=== PATIENT | male | born 1980 | race Asian ===

== ENCOUNTER 2017-03-05 08:24 | Emergency (ER) | payer OTHER, MEDICARE ==
[~2017-03-05] VITALS: Ht 180.3 cm; Wt 108.0 kg
[~2017-03-05 08:24] MED LIST: BMP; DEPAKOTE500 M1 PO; DIVALPROEX SOD500 M1 PO; INVEGA SUSTENN117 MG IM; INVEGA SUSTENN234 MG IM; LORAZEPAM0.5 MG PO; SEROQUEL 100MG100 MG PO; SEROQUEL XR400 MG PO
--- NOTE | 2017-03-05 10:09 | ED GENERAL ADULT ---
History of Present Illness General Chief Complaint: General Adult Stated Complaint: BIBA, INSOMNIA Source: patient, old records Exam Limitations: no limitations Vital Signs & Intake/Output Vital Signs & Intake/Output Vital Signs Date Time Temp Pulse Resp B/P B/P Pulse O2 O2 Flow FiO2 Mean Ox Delivery Rate 03/05 1217 98.0 70 20 120/74 98 Room Air 03/05 1107 98.0 68 18 118/72 98 Room Air 03/05 0831 97.0 66 18 108/69 97 Room Air Allergies Coded Allergies: Pork/Porcine Containing Products (AGAINST RESTORATIONIST 07/13/16) benztropine (From COGENTIN) (RASH 07/13/16) haloperidol (From HALDOL) (TONGUE SWELLS 07/13/16) Reconcile Medications Divalproex Sodium (Depakote) 500 MG TABLET.DR 2 TAB PO BID MENTAL HEALTH ( Reported) Lorazepam 0.5 MG TABLET 0.5 MG PO QPM ANXIETY (Reported) Paliperidone Palmitate (Invega Sustenna) 234 MG SER 1 SYR IM Q30D MENTAL HEALTH (Reported) Triage Note: PT BIBA FROM HOME FOR C/O INSOMNIA. STATES HIS NURSE HASN'T BEEN OUT TO GIVE HIM HIS DEPAKOTE IN 2 DAYS. STATES HE COULDN'T SLEEP LAST NIGHT. DENIES ANY PAIN. PT HAS H/O BIPOLAR. JAZZ SI/HI. JAZZ AV/AH. AWAITING PROVIDER EVAL. Triage Nurses Notes Reviewed? yes HPI: Patient is a 36-year-old male presents complaining of insomnia and stress. Patient reports that he has been unable to sleep for the past 2-3 days. Patient has not had his Depakote or Ativan in at least 2 days. Patient has a visiting nursing services that normally administers his medications but reports that he missed opening his door one time and they stopped sending the visiting nurse. Patient with racing thoughts and depression. Symptoms are currently severe. Patient denies suicidal ideation, homicidal ideation, suicide attempts, illicit drug use. Past History Travel History Traveled to [place] past 21 day No Medical History Any Pertinent Medical History? 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 No Review of Systems Review of Systems Constitutional: Denies: chills, fever. EENTM: Reports: no symptoms. Respiratory: Denies: cough, short of breath. Cardiovascular: Denies: chest pain. GI: Reports: abdominal pain (last night, none currently). Genitourinary: Reports: no symptoms. Musculoskeletal: Reports: no symptoms. Skin: Reports: no symptoms. Neurological/Psychological: Reports: see HPI. Hematologic/Endocrine: Reports: no symptoms. Immunologic/Allergic: Reports: no symptoms. Physical Exam Physical Exam General Appearance: well developed/nourished, alert, awake Head: atraumatic, normal appearance Eyes: Bilateral: normal appearance, PERRL, EOMI. Ears, Nose, Throat: normal pharynx, normal ENT inspection, hearing grossly normal Neck: normal inspection, supple, full range of motion Respiratory: normal breath sounds, chest non-tender, no respiratory distress, lungs clear Cardiovascular: regular rate/rhythm Gastrointestinal: normal bowel sounds, soft, non-tender Back: normal inspection, normal range of motion Extremities: normal inspection, normal capillary refill, normal range of motion, no edema Neurologic/Psych: awake, alert, oriented x 3, flat affect, no apparent suicidal ideation or hallucinations Skin: intact, normal color, warm/dry Lymphatic: no anterior cervical brooklynn Core Measures ACS in differential dx? No CVA/TIA Diagnosis: No Severe Sepsis Present: No Septic Shock Present: No Progress Differential Diagnoses I considered the following diagnoses in my evaluation of the patient: Anxiety, depression, bipolar, psychosis, medication withdrawal, overdose, intoxication Plan of Care: Orders Procedure Date/time Status Regular Diet 03/05 L Active URINE DRUG SCREEN FOR ER ONLY 03/05 1016 Complete ETHANOL 03/05 1016 Complete DEPAKOTE LEVEL 03/05 1016 Complete COMPREHENSIVE METABOLIC PANEL 03/05 1016 Complete CBC WITHOUT DIFFERENTIAL 03/05 1016 Complete ED CRISIS PSYCH CONSULT 03/05 1016 Active Laboratory Tests 03/05/17 1103: Urine Opiates Screen < 100.00, Methadone Screen < 40, Barbiturate Screen < 60, Ur Phencyclidine Scrn < 6.00, Amphetamines Screen < 100, U Benzodiazepines Scrn < 85, Urine Cocaine Screen < 50, Urine Cannabis Screen < 5.00 03/05/17 1058: Anion Gap 13, Estimated GFR > 60, BUN/Creatinine Ratio 14.3, Glucose 82, Calcium 9.8, Total Bilirubin 0.6, AST 38, ALT 57, Alkaline Phosphatase 64, Total Protein 7.8, Albumin 4.4, Globulin 3.4, Albumin/Globulin Ratio 1.3, CBC w Diff NO MAN DIFF REQ, RBC 4.79, MCV 91.1, MCH 31.0, RDW 14.1, MPV 6.3 L, Gran % 42.8, Lymphocytes % 44.8, Monocytes % 9.6 H, Eosinophils % 2.4, Basophils % 0.4, Absolute Granulocytes 4.1, Absolute Lymphocytes 4.3 H, Absolute Monocytes 0.9 H, Absolute Eosinophils 0.2, Absolute Basophils 0, PUBS MCHC 34.0, Valproic Acid < 10.0 L, Serum Alcohol < 10.0 03/05/2017 12:07:54 PM; patient requesting discharge, does not want to be evaluated by the psychology clinician. No suicidal or homicidal ideation. Patient reports that he can call his visiting nursing services for them to resume administering his medications. (KELECHI KELLEY,JULIET) Initial ED EKG: none Departure Departure Time of Disposition: 1208 Disposition: HOME OR SELF CARE Condition: Stable Clinical Impression Primary Impression: Insomnia Secondary Impressions: Bipolar disorder Referrals: UNKNOWN (PCP/Family) Additional Instructions: Call your visiting nursing services today for them to resume administering current medications. Return to the emergency department if thoughts of harming yourself or worsening of symptoms. Departure Forms: Customer Survey General Discharge Information Critical Care Note Critical Care Note Critical Care Time: non-applicable
[2017-03-05 11:09] LABS: ABSOLUTE BASOPHIL COUNT 0 /CUMM (0.0-0.2); ABSOLUTE EOSINOPHIL COUNT 0.2 /CUMM (0.0-0.7); ABSOLUTE GRANULOCYTE CT 4.1 /CUMM (1.4-6.5); ABSOLUTE LYMPH COUNT 4.3 /CUMM (1.2-3.4); ABSOLUTE MONOCYTE COUNT 0.9 /CUMM (0.10-0.60); BASOPHIL % 0.4 % (0.0-2.0); EOSINOPHIL % 2.4 % (0-5); GRANULOCYTE % 42.8 % (42.2-75.2); HEMATOCRIT 43.7 % (42-52); MEAN CORPUSCULAR VOLUME 91.1 FL (80.0-94.0); MEAN PLATELET VOLUME 6.3 FL (7.4-10.4); PLATELET COUNT 276 /CUMM (130-400); RBC DISTRIBUTION WIDTH 14.1 % (11.5-14.5); RED BLOOD CELL CT 4.79 /CUMM (4.70-6.10); WHITE BLOOD CELL COUNT 9.5 /CUMM (4.8-10.8)
[2017-03-05 12:17] VITALS: BP 120/74
== END 2017-03-05 12:20 ==
LOC: ERH 08:24
PROVIDERS: Physician Assistant
DX: G47.00 Insomnia, unspecified (principal); F31.9 Bipolar disorder, unspecified
CPT/HCPCS: 80307; G0480

== ENCOUNTER 2017-03-25 09:48 | Inpatient (IN) | payer OTHER, MEDICARE ==
[~2017-03-25] VITALS: Ht 180.3 cm; Wt 108.0 kg
--- NOTE | 2017-03-25 09:51 | NUR ---
36 YO MALE BIBA FROM HOME. PT STATES HE HAS A HX OF BIPOLAR AND SCHIPHRENIA AND HE STOPPED HIS MEDS A COUPLE DAYS AGO. STATES "I FIGURED I WOULD BE BETTER OFF NOT TAKING MY MEDS, THEY DONT WORK ANYWAYS" PT ARRIVES CALM AND COOPERATIVE. SECUIRTY AT BEDSIDE FOR WANDING. DENEIS ALCOHOL/DRUG USE. DENIES SI/HI.
--- NOTE | 2017-03-25 09:58 | NUR ---
URINE ORDERED PER REQUEST OF RN AND PROVIDER
--- NOTE | 2017-03-25 10:10 | NUR ---
One (1) belongings bag locked in closet and one (1) valuables bag given to Pod 2 RN
[2017-03-25 10:11] LABS: ABSOLUTE BASOPHIL COUNT 0 /CUMM (0.0-0.2); ABSOLUTE EOSINOPHIL COUNT 0.2 /CUMM (0.0-0.7); ABSOLUTE GRANULOCYTE CT 3.6 /CUMM (1.4-6.5); ABSOLUTE LYMPH COUNT 4.3 /CUMM (1.2-3.4); ABSOLUTE MONOCYTE COUNT 0.8 /CUMM (0.10-0.60); BASOPHIL % 0.3 % (0.0-2.0); GRANULOCYTE % 40.4 % (42.2-75.2); HEMATOCRIT 40.8 % (42-52); MEAN CORPUSCULAR HGB 30.8 PG (27.0-31.0); MEAN CORPUSCULAR HGB CONC 34.1 G/DL (33.0-37.0); MEAN CORPUSCULAR VOLUME 90.4 FL (80.0-94.0); PLATELET COUNT 254 /CUMM (130-400); RBC DISTRIBUTION WIDTH 13.9 % (11.5-14.5); RED BLOOD CELL CT 4.51 /CUMM (4.70-6.10)
--- NOTE | 2017-03-25 10:20 | ED PSYCHIATRIC COMPLAINT ---
History of Present Illness General Chief Complaint: Psychiatric Related Complaint Stated Complaint: HX BIPOLAR, HASNT BEEN TAKING MEDS Source: patient, old records, EMS Exam Limitations: no limitations Vital Signs & Intake/Output Vital Signs & Intake/Output Vital Signs Date Time Temp Pulse Resp B/P B/P Pulse O2 O2 Flow FiO2 Mean Ox Delivery Rate 03/30 808 96.2 57 110/56 03/29 2027 97.3 81 118/70 03/29 1552 77 120/67 03/29 1210 47 117/61 Allergies Coded Allergies: Pork/Porcine Containing Products (AGAINST YAZDANISM 07/13/16) benztropine (From COGENTIN) (RASH 07/13/16) haloperidol (From HALDOL) (TONGUE SWELLS 07/13/16) Reconcile Medications Divalproex Sodium (Depakote) 500 MG TABLET.DR 2 TAB PO BID MENTAL HEALTH ( Reported) Lorazepam 0.5 MG TABLET 0.5 MG PO QPM ANXIETY (Reported) Paliperidone Palmitate (Invega Sustenna) 234 MG SER 1 SYR IM Q30D MENTAL HEALTH (Reported) Triage Note: 36 YO MALE BIBA FROM HOME. PT STATES HE HAS A HX OF BIPOLAR AND SCHIPHRENIA AND HE STOPPED HIS MEDS A COUPLE DAYS AGO. STATES "I FIGURED I WOULD BE BETTER OFF NOT TAKING MY MEDS, THEY DONT WORK ANYWAYS" PT ARRIVES CALM AND COOPERATIVE. SECUIRTY AT BEDSIDE FOR WANDING. DENEIS ALCOHOL/DRUG USE. DENIES SI/HI. Triage Nurses Notes Reviewed? yes Onset: 2 days Duration: day(s):, constant, continues in ED, getting worse Timing: recent history Severity: moderate, severe Associated Symptoms: impaired concentration, insomnia, suicidal ideation HPI: 2 days prior to admission patient stopped his medication because he felt he was overly sedated. He complains of insomnia inability to concentrate and auditory hallucination hearing voices tell him to kill himself coming from the devil. He denies fever chills nausea vomiting diarrhea abdominal pain chest pain shortness breath headache dysuria rash bleeding homicidal ideation. (DONNIE MAYFIELD,DESMOND) Past History Travel History Traveled to [place] past 21 day No Medical History Any Pertinent Medical History? 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 No (DESMOND FIELDS MD) Review of Systems Review of Systems Constitutional: Reports: no symptoms. EENTM: Reports: no symptoms. Respiratory: Reports: no symptoms. Cardiovascular: Reports: no symptoms. GI: Reports: no symptoms. Genitourinary: Reports: no symptoms. Musculoskeletal: Reports: no symptoms. Skin: Reports: no symptoms. Neurological/Psychological: Reports: see HPI, anxiety, confusion. Hematologic/Endocrine: Reports: no symptoms. Immunologic/Allergic: Reports: no symptoms. All Other Systems: Reviewed and Negative (DESMOND FIELDS MD) Physical Exam Physical Exam General Appearance: well developed/nourished, alert, awake, anxious, mild distress Head: atraumatic, normal appearance Eyes: Bilateral: normal appearance, PERRL, EOMI. Ears, Nose, Throat: normal pharynx, normal ENT inspection, hearing grossly normal Neck: normal inspection, supple, full range of motion, no midline tenderness Respiratory: normal breath sounds, chest non-tender, no respiratory distress, quiet respiration, lungs clear Cardiovascular: regular rate/rhythm, normal peripheral pulses, norml femoral pulses equa Gastrointestinal: normal bowel sounds, soft, non-tender, no organomegaly Extremities: normal range of motion, no ligament instability Neurological/Psychiatric: no motor/sensory deficits, awake, agitated, alert, anxious, accounting officer II-XII nml as tested, flat, oriented x 3 Appearance/Memory/Insight: disheveled, impaired insight Behavoir/Eye Contact/Speech: cooperative, normal speech Thoughts/Hallucinations: auditory hallucinations Skin: intact, normal color, warm/dry SAD PERSONS SAD PERSONS Response Value Male Sex? yes 1 Depression/Hopelessness? yes 2 Previous Attempts/Psych Care yes 1 Rational Thinking Loss? yes 2 Single//? yes 1 Social Support? has support 0 Stated Future Intent? yes 2 Total 9 SAD PERSONS Done? yes (DESMOND FIELDS MD) Progress Differential Diagnosis: drug intoxication, drug overdose, drug withdrawal, electrolyte abnormality, hypoglycemia Plan of Care: Current Medications Sig/José Antonio Start time Last Medication Dose Stop Time Status Admin Paliperidone 234 MG Q28D 03/31 1000 AC Palmitate (Invega Sustenna) Divalproex Sodium 1,000 MG 0800,03/27 AC 03/29 (Depakote) 203 Paliperidone 3 MG Q6P PRN 03/27 1930 AC 03/29 (Invega) 233 Gabapentin 300 MG Q4P PRN 03/27 181 AC 03/29 (Neurontin) 233 Melatonin 10 MG AT BEDTIME NEED.. 03/27 1815 AC 03/29 (Melatonin) 203 Acetaminophen 650 MG Q6P PRN 03/26 1230 AC 03/29 (Tylenol) 1330 Al Hydroxide/Mg 30 ML Q4-6 PRN PRN 03/26 1230 AC Hydroxide (Maalox Plus) Magnesium Hydroxide 30 ML AT BEDTIME PRN 03/26 1230 AC (Milk Of Magnesia) Laboratory Tests 03/30/17 0730: Hemoglobin A1c Pending, Valproic Acid Pending 3:13 PM 03/25 Patient signed out to me by Dr. Fields. Pending crisis inpatient bed. (XI CALI MD) Hand-Off Endorsed To: XI CALI MD Endorsed Time: 1500 Pending: consult, other (bed search) (DESMOND FIELDS MD) Hand-Off Endorsed To: EN DAVENPORT MD Endorsed Time: 0700 Pending: consult, other (BILL MAYFIELD,ARELIS Powell) Comments: 03/26/2017 7:30:59 AM patient signed out to me by Dr. Tucker at shift chart changer. The patient's nurse has just brought to my attention that the patient's heart rate is in the upper 40s to low 50s. An EKG and TSH have been ordered. 03/26/2017 10:44:42 AM additional evaluation is unremarkable. Patient's case discussed with Dr. Ariel Olivares including his current heart rate blood pressure EKG. Dr. Olivares does not feel that there is any acute cardiac issue currently. (EN DAVENPORT MD) Departure Departure Disposition: STILL A PATIENT Condition: Stable Referrals: UNKNOWN (PCP/Family) Departure Forms: Customer Survey General Discharge Information (DESMOND FIELDS MD) Departure Time of Disposition: 1212 (XI CALI MD) Departure Clinical Impression Primary Impression: Schizoaffective disorder, bipolar type Secondary Impressions: Bradycardia Psych Admission Note Psychiatric Admission: I have reviewed all the pertinent lab results and diagnostic results. YOUSEF,AMER will be admitted to our inpatient Psychiatric unit for treatment and care. (EN DAVENPORT MD) Departure Departure Disposition: STILL A PATIENT Condition: Stable Referrals: UNKNOWN (PCP/Family) Departure Forms: Customer Survey General Discharge Information (DESMOND FIELDS MD) Departure Clinical Impression Primary Impression: Schizoaffective disorder, bipolar type Secondary Impressions: Bradycardia Psych Admission Note Psychiatric Admission: I have reviewed all the pertinent lab results and diagnostic results. YOUSEF,AMER will be admitted to our inpatient Psychiatric unit for treatment and care. (EN DAVENPORT MD)
--- NOTE | 2017-03-25 11:03 | NUR ---
ASSUMED CARE OF THIS PT FROM SONYA BRAVO. PT RESTING IN ROOM 13, CALM AND COOPERATIVE WITH TV ON. AWAITING CRISIS CONSULT. SITTER AT DOOR.
--- NOTE | 2017-03-25 13:01 | NUR ---
PT AMBULATORY TO RESTROOM AND TO TELEPHONE. PT CALM AND COOPERATIVE. PT HAD STEADY GAIT. SITTER AT DOOR.
--- NOTE | 2017-03-25 14:30 | NUR ---
PT ASLEEP ON BACK ON BED IN ROOM 13. PT HAS BEEN CALM AND COOPERATIVE. PT IS AWAITING CRISIS CONSULT. SITTER AT DOOR. PT'S RESPIRATIONS EQUAL AND UNLABORED.
--- NOTE | 2017-03-25 15:33 | NUR ---
RECEIVED REPORT ON PT AND PT NOTED RESTING AND NO COMPLAINTS AND AWARE POC
--- NOTE | 2017-03-25 17:02 | NUR ---
WAS JUST INFORMED THAT PT WILL BE A BED SEARCH
--- NOTE | 2017-03-25 17:40 | ED PSYCH CRISIS CONSULTATION ---
See Addendum Crisis Consult Basic Assessment Date of Consult: 03/25/17 Responsible Person/Accompanied By: self/biba Insurance Authorization: Insurance #1: Insurance name: MEDICARE A Phone number: Policy number: [id number] Group number: Authorization number: ED Provider: Patient's ED Provider: DESMOND FIELDS MD Primary Care Physician: Patient's PCP: UNKNOWN PCP's Phone Number: Current Psychiatrist: Dr Villa [facility] Chief Complaint: Psychiatric Related Complaint Patient's Quote: I'm hearing voicessaying to do bad and negative things. Present Illness: Pt is a 36 yo male biba to [place] earlier this morning. Pt reports he stopped taking his medication two days ago and now is hearing voices telling him to harm himself. he also reports racing thoughts and inability to sleep. Pt has prior hx of multiple hospitalizations on [facility] (last inpatient Dec 2015) and has long hx of outpatient treatment at [facility] in [place]. Pt is diagnosed schizoaffective bipolar type and is prescribed depakote and ativan. He has a long hx of medication non-compliance. Most prior inpatient admissions are precipitated by his stopping to take his medications. Pt reports he stopped taking his medications because he didn't think they helped. Pt presents as alert , cooperative, depressed, poor concentration, OX3. he reports voices are telling him to harm self but he is trying to ignore them. Pt reports living with his mother and older brother. he receives in-home visiting nurse services. Patient's Address: [address] [place] [address] Other Phone Number: Who Do You Live With? Mother Family/Informants Interviewed: informed pr mother Angela that pt was receiving psychiatric consult at [place] [facility] and he would require a bed search for inpatient treatment. Allergies - Coded Allergies: Pork/Porcine Containing Products (AGAINST MU-ISM 07/13/16) benztropine (From COGENTIN) (RASH 07/13/16) haloperidol (From HALDOL) (TONGUE SWELLS 07/13/16) Current Medications - Scheduled Medications Divalproex Sodium (Depakote) 500 MG TABLET.DR Baxter TAB PO BID MENTAL HEALTH ( Reported) Entered as Reported by JANEL PEDROZA on 07/13/16 1745 Lorazepam 0.5 MG TABLET 0.5 MG PO QPM ANXIETY #30 (Reported) Entered as Reported by JENIFFER DELGADILLO on 10/20/14 0959 Paliperidone Palmitate (Invega Sustenna) 234 MG SER 1 SYR IM Q30D MENTAL HEALTH #2 (Reported) Entered as Reported by JENIFFER DELGADILLO on 12/12/15 1137 Laboratory Results: Laboratory Tests 03/25/17 1007: Anion Gap 14, Estimated GFR > 60, BUN/Creatinine Ratio 11.7, Glucose 105 H, Calcium 9.4, Total Bilirubin 0.5, AST 21, ALT 26, Alkaline Phosphatase 56, Total Protein 6.9, Albumin 3.9, Globulin 3.0, Albumin/Globulin Ratio 1.3, CBC w Diff MAN DIFF ORDERED, RBC 4.51 L, MCV 90.4, MCH 30.8, RDW 13.9, MPV 6.0 L, Gran % 40.4 L, Lymphocytes % 48.0, Monocytes % 9.3, Eosinophils % 2.0, Basophils % 0.3 , Absolute Granulocytes 3.6, Absolute Lymphocytes 4.3 H, Absolute Monocytes 0.8 H, Absolute Eosinophils 0.2, Absolute Basophils 0, Platelet Estimate VERIFIED BY SMEAR, Normocytic RBCs VERIFIED, Normochromic RBCs VERIFIED, PUBS MCHC 34.1, Valproic Acid 104.7, Serum Alcohol < 10.0 03/25/17 1002: Urine Opiates Screen < 100.00, Methadone Screen < 40, Barbiturate Screen < 60, Ur Phencyclidine Scrn < 6.00, Amphetamines Screen 105, U Benzodiazepines Scrn < 85, Urine Cocaine Screen < 50, Urine Cannabis Screen < 5.00 Past History Past Medical History Neurological: NONE EENT: NONE Cardiovascular: NONE Respiratory: NONE Gastrointestinal: NONE Hepatic: NONE Renal: NONE Musculoskeletal: NONE Psychiatric: anxiety, bipolar disease, schizo affective disorder Endocrine: NONE Blood Disorders: NONE Cancer(s): NONE 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 Past Surgical History Surgical History: none Psychosocial History Strengths/Capabilities: Supportive family Engaged in outpatient tx Able to ask for help when needed Physical Limitations (Interventions): None identified Psychiatric Treatment History Psych Treatment Psychiatric Treatment Yes Inpatient Treatment Yes Outpatient Treatment Yes Location of Treatment [facility] since 2010; most recent Dec 2015; outpatient telephony engineer [facility] Reason for Treatment schizoaffective d/o Response to Treatment chronic med non-compliance Diagnosis by History: Schizoaffective d/o Substance Use/Abuse History Drug Use/Abuse Substances Used/Abused No Substance Abuse Treatment Substance Abuse Treatment Past Substance Abuse [place] No Comments: denies alcohol and drug use Current Mental Status Mental Status Orientation: Person, Place, Situation Affect: Depressed, Hopeless, Sad Speech: WNL Neuro-vegetative: Concentration Poor, Energy Decreased, Helpless, Sleep Disturbance Appearance Appearance- Dress/Hygiene: hospital scrubs, laying flat on bed with blanker pulled up to neck. engageable. Behaviors Thought Process: Irrational, Loose Association Thought Content: Auditory Hallucinations Memory: WNL Insight: Fair SI/HI Risk Assessment Past Suicidal Ideation/Attempts Yes Current Suicidal Ideation/Att Yes Past Homicidal Ideation/Att: No Current Homicidal Ideation/Attempts No Degree of Intent: Thoughts/No Intent Danger To: Self Gravely Disabled: Poor Impulse Control, Poor Judgment Risk Factors: high anxiety/distress, SA/MH hospitalized, poor impulse control, male Lethality Ratin PTSD Checklist PTSD Done? patient declined ED Management Sitter: Yes Restraints: No DSM5/PS Stressors/Medical Prob Diagnosis' (DSM 5, Stressors, Medical): Schizoaffective D/O (F25.0) recent medication stoppage unemployed Current GAF: 25 Comments: pt reports stopping his medications two days ago because he thought they weren't helping. Pt reporting inability to sleep, racing thoughts and AH with voices telling him to harm himself. Departure Disposition Psych Medical Clearance Date: 03/25/17 Medically Cleared at: 1700 Time Started: 1704 Time Ended: 1744 Psychiatrist Consulted: Daniela MAYFIELD,Edward Date Disposition Established: 03/25/17 Time Disposition Established: 1744 Plan for Disposition - Modality: Bed Search Rationale for Disposition: Pt requires bed search for inpatient psychiatric treatment. Pt stopped medications 2 days ago and hearing voices to harm self. Referrals UNKNOWN (PCP/Family)
--- NOTE | 2017-03-25 19:12 | NUR ---
PT STILL SLEEPING AND EASILY AROUSED AND DENIES ANY COMPLAINTS AT PRESENT
--- NOTE | 2017-03-25 21:13 | NUR ---
PT STILL SLEEPING AND STS HE WILL LIKE TO BE LEFT ALONE FOR THE REST OF THE NIGHT
--- NOTE | 2017-03-25 22:32 | NUR ---
PT MEDICATED ORDERED
--- NOTE | 2017-03-26 00:08 | NUR ---
PT MEDICATED WITH 10MG MELATONIN PER EMAR FOR SLEEP
--- NOTE | 2017-03-26 00:08 | NUR ---
PT AWOKEN FOR MEDICATION ADMINISTRATION. OFFERING NO COMPLAINTS AT THIS TIME, SITTER REMAINS IN PLACE FOR SAFETY.
--- NOTE | 2017-03-26 02:26 | NUR ---
PT UP TO BATHROOM, BACK TO BED. OFFERING NO COMPLAINTS AT THIS TIME. SITTER REMAINS IN PLACE
--- NOTE | 2017-03-26 04:01 | NUR ---
PATIENT SLEEPING AT THIS TIME W/ REGULAR RESPIRATIONS NOTED. SITTER REMAINS AT BEDSIDE. LIGHTS DIMMED.
--- NOTE | 2017-03-26 05:25 | NUR ---
PATIENT CONTINUES TO SLEEP AT THIS TIME W/ REGULAR RESPIRATIONS NOTED. SITTER REMAINS W/ PATIENT. PATIENT NOTED TO BE TURNING AND REPOSITIONING SELF W/O DIFFICULTY.
--- NOTE | 2017-03-26 06:48 | NUR ---
PT AWAKE, CALM AND COOPERATIVE. DENIES NEEDS. SITTER REMAINS PRESENT
--- NOTE | 2017-03-26 06:48 | NUR ---
PT REPORTS "I FEEL BETTER TODAY." DENIES HALLUCINATIONS AT THIS TIME
--- NOTE | 2017-03-26 06:58 | NUR ---
ASSUMED CARE AT THIS TIME, PT AWAKE FOR THIS NURSE, CALM COPERATIVE AND OFFERS NO COMPLAINTS.
--- NOTE | 2017-03-26 07:29 | NUR ---
PT AWAKE FR VITALS, OFFERS NO COMPLAINTS, HR NOTED TO RANGE FROM 42/54, DR DAVENPORT AWARE AND EKG TO BE ORDERED. DENIES DIZZINESS.
--- NOTE | 2017-03-26 07:53 | NUR ---
DR DAVENPORT AWARE OF LOW HR, EKG COMPLETED AND PT SINUS FRANCISCA WITH HR 41. PT CONTINUES TO DENIE DIZZINESS. PT MOVED TO MEDICAL ROOM PLACED ON MONITOR
--- NOTE | 2017-03-26 08:17 | NUR ---
PT DENIES BEING AN ATHLETE. ABLE TO CHANGE POSITIONS WITHOUT FEELING DIZZY, DENIES CP/SOB. SINUS FRANCISCA AT THIS TIME WITH HR 44.
--- NOTE | 2017-03-26 08:42 | NUR ---
BLOOD DRAWN AND SENT TO LAB. LAV,SST,BLUE
--- NOTE | 2017-03-26 08:54 | NUR ---
PT AWAKE AND ALERT, DENIES DIZZINESS, SINUS FRANCISCA HR 48
--- NOTE | 2017-03-26 09:22 | NUR ---
PT CONTINUES TO OFFER NO COMPLAINTS, SINUS FRANCISCA MONITOR HR [id number]
--- NOTE | 2017-03-26 10:27 | NUR ---
PHARMACY CALLED FOR MEDS
--- NOTE | 2017-03-26 10:44 | NUR ---
PT MEDICATED PER ORDER , REMAINS CALM AND COPERATIVE , SINUS FRANCISCA ON MONITOR HR 51. PER DR DAVENPORT PT TO HAVE EVALUATION BY CARDIOLOGY
--- NOTE | 2017-03-26 12:15 | NUR ---
AWAITING CARDIOLOGY CONSULT.
--- NOTE | 2017-03-26 13:21 | IP CRISIS DIAG ASSESS PSYCH ---
Diagnostic Assessment Basic Assessment Insurance Authorization: Insurance #1: Insurance name: MEDICARE A BEHAVIORAL HEALTH Phone number: Policy number: [id number] Group number: Authorization number: [id number] INITIAL Primary Care Physician: Patient's PCP: UNKNOWN PCP's Phone Number: Patient's Quote: I'm hearing voicessaying to do bad andnegative things. Present Illness: Pt is a 36 yo male biba to [facility] ED earlier this morning. Pt reports he stopped taking his medication two days ago and now is hearing voices telling him to harm himself. he also reports racing thoughts and inability to sleep. Pt has prior hx of multiple hospitalizations on [facility] (last inpatient Dec 2015) and has long hx of outpatient treatment at [facility] in [place]. Pt is diagnosed schizoaffective bipolar type and is prescribed depakote and ativan. He has a long hx of medication non-compliance. Most prior inpatient admissions are precipitated by his stopping to take his medications. Pt reports he stopped taking his medications because he didn't think they helped. Pt presents as alert , cooperative, depressed, poor concentration, OX3. he reports voices are telling him to harm self but he is trying to ignore them. Pt reports living with his mother and older brother. he receives in-home visiting nurse services. >>>>> Eddie JAIMESW Pt re-evaluated by crisis. He reports AH that tell him to harm himself. He said the voices get very loud when he is by himself but not when having a conversation with others. He denies AH during this securities underwriter's conversation. He is seeking admission for mood stablization and safety. Pt said he stopped taking his medications 2 days ago. He presents with poor insight, judgement and eye contact. Pt observed to be gravely disabled and not stable at this time. This securities underwriter consulted with Dr. Franco and recommends to proceed with inpatient admission. Patient's Address: [address] [place] [address] Other Phone Number: Who Do You Live With? Mother Feel Safe Where You Live? Yes Marital Status: single Do You Have Children? No Primary Language? Saudi Arabian Language(s) Spoken At Home: Saudi Arabian, Greek Family/Informants Interviewed: informed pr mother Angela that pt was receiving psychiatric consult at [facility] and he would require a bed search for inpatient treatment. Allergies - Coded Allergies: Pork/Porcine Containing Products (AGAINST CAODAISM 07/13/16) benztropine (From COGENTIN) (RASH 07/13/16) haloperidol (From HALDOL) (TONGUE SWELLS 07/13/16) Current Medications - Scheduled Medications Divalproex Sodium (Depakote) 500 MG TABLET.DR 2 TAB PO BID MENTAL HEALTH ( Reported) Entered as Reported by JANEL PEDROZA on 07/13/16 1745 Lorazepam 0.5 MG TABLET 0.5 MG PO QPM ANXIETY #30 (Reported) Entered as Reported by JENIFFER DELGADILLO on 10/20/14 0959 Paliperidone Palmitate (Invega Sustenna) 234 MG SER 1 SYR IM Q30D MENTAL HEALTH #2 (Reported) Entered as Reported by JENIFFER DELGADILLO on 12/12/15 1137 Past History Past Medical History Medical History: Cholesterol, SCHIZOAFFECTIVE DISORDER, ELEVATED CHOLESTEROL, ANEMIA, NICOTINE DEPENDENCE Past Surgical History Surgical History none Abuse/Trauma History Trauma History/Current Trauma: denies Victim or Perpretator? 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 [facility] Reason for Treatment schizoaffective d/o Response to Treatment chronic med non-compliance Diagnosis by History: Schizoaffective d/o Risk Factors: high anxiety/distress, SA/MH hospitalized, poor impulse control, male Substance Use/Abuse History Drug Use/Abuse minimum 12mo Hx Substances Used/Abused No Substance Abuse Treatment Substance Abuse Treatment Past Substance Abuse [place] No Sexual History Sexually Active No Sexual Concerns: denies Education History Highest Level of Education: some college Preferred Learning Style: visual Current Mental Status Mental Status Orientation: Person, Place, Situation Affect: Depressed, Hopeless, Sad Speech: WNL Neuro-vegetative: Concentration Poor, Energy Decreased, Helpless, Sleep Disturbance Appearance Appearance- Dress/Hygiene: hospital scrubs, laying flat on bed with blanker pulled up to neck. engageable. Behaviors Thought Process: Irrational, Loose Association Thought Content: Auditory Hallucinations Memory: WNL Insight: Fair SI/HI Risk Assessment - Minimum 6mo History- Past Suicidal Ideation/Attempts Yes Current Suicidal Ideation/Att Yes Past Homicidal Ideation/Att: No Current Homicidal Ideation/Attempts No Degree of Intent: Thoughts/No Intent Danger To: Self Gravely Disabled: Poor Impulse Control, Poor Judgment Risk Factors: high anxiety/distress, SA/MH hospitalized, poor impulse control, male Lethality Ratin Needs/Init TX Plan/Goals: mood stabilization and safety, medication evaluation, psychoeducation, group and individual therapy, and coping skills. AUDIT-C Questionnaire: AUDIT-C Questionnaire: Response Value ETOH use in the past year Never 0 # drinks typical/day Doesn't Drink 0 6 or > drinks per occasion Never 0 Total 0 DSM5/PS Stressors/Medical Prob Diagnosis' (DSM 5, Stressors, Medical): Schizoaffective D/O (F25.0) recent medication stoppage unemployed Current GAF: 25 Comments: Pt reports stopping his medications two days ago because he thought they weren't helping. Pt reporting inability to sleep, racing thoughts and AH with voices telling him to harm himself.
--- NOTE | 2017-03-26 13:54 | NUR ---
PT TO BE ADMITTED TO [facility]. PT CLEARED BY CARDIOLOGY. SINUS FRANCISCA HR 48 AT THIS TIME.OFFERS NO COMPLAINTS
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
--- NOTE | 2017-03-26 16:05 | NUR ---
PATIENT ALERT6 ORIENTED , NAD DENIES PAIN OR WEAKNESS EATING AND DRINKING W/O ISSUE HR 46 SINUS BRADYCARDIA / B/P 98/44 SKIN WARM DRY
--- NOTE | 2017-03-26 17:56 | NUR ---
RESTING QUIETLY CALM COOPERATIVE OFFERS NO COMPLAINTS SKIN COOL DRY
--- NOTE | 2017-03-26 18:53 | NUR ---
REPORT GIVEN TO GALILEO MEJIA
[2017-03-26 19:58] VITALS: BP 117/70
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
--- NOTE | 2017-03-27 07:37 | NUR ---
PT VOLUNTARILY ADMITTED FOR SCHIZOAFFECTIVE DISORDER WITH PARANOID THOUGHTS. PT HAS BEEN NON-COMPLIANT WITH MEDS. PT HAD ATIVAN 0.5 PRN AND VISTARIL 50 PRN WITH GOOD EFFECT. PT SLEPT.
--- NOTE | 2017-03-27 12:11 | SOCIAL WORKER PROG NOTE PSYCH ---
Social Work Progress Note Progress Note Discussed Dhaval in team meeting with Dr. Suarez and staff. Met with Dhaval this afternoon, he stated he knows he shouldn't have stopped his medications. When asked if there was any stressors prior to admission, Dhaval stated his sister, Lanette and his Mother are going to [place] to visit family for a month and are leaving in a few days. Dhaval stated he was going to go with them, but he said he doesn't think he can go now (due to being in the hospital). He understands they need to go to [place] (they wanted to take [place] as well), because they haven;t seen family in 25yrs. Dhaval stated it's going to be "difficult being by myself." He lives with his brother, Amanda and Mother. He stated the voices POSTAL DELIVERY OFFICER were telling him to kill himself, "they were saying very, very bad things....like I should kill myself, I tried to ignore them, but I couldn't take it anymore, I had to come here." Offered to Dhaval to use [employer] to communicate with his Mother ( who seems to be primary caregiver for Dhaval). He refused a release for his Mother or Mini. He stated Mini "doesn't do well in meetings." Dhaval signed PAYAL's for [facility] and [facility] as well as Lanette Yousef (sister). He denied SI/HI - denied command hallucinations today, he did appear to be highly anxious and restless when talking about his sister and Mother's trip to [place]. He is calm, cooperative, soft spoken. Has been in groups, quiet and keeps to himself. Dhaval stated he "wants to go to college." Spoke with Lanette Yousef , she feels Dhaval hasn't done well on his medications for the past few years. - she said he is always paranoid, doesn't want to do anything, never leaves the house apparently. His sister, Lanette lives in [place]. She did confirm that she and her Mother are going to [place], the tickets haven;t been confirmed yet, she stated they may go next week or the following week. Lanette seemed irritated and annoyed with Dhaval and how he "doesn' t do anything, won't go out of the house, dependent on my Mother." She stated Dhaval will have to "grow up" and be without his Mother for a month. Informed Lanette about Dhaval's presentation and Command - to kill himself, she stated she didn't know that and her tone softened. She stated she wants to come to [place] for a meeting and see Dhaval, next week. Plan to talk on Thursday to schedule meeting. Spoke with Casey Berman, RN of [facility] , he confirmed that they do provide injection of Invega - last dose given was on 03/03 of 234mg every 4 weeks. Dhaval is alos connected with [facility] - ACT Team and social media marketing specialist, Adeline Jin, [facility]. His prescriber is Dr. Davis. Mr. Berman will inform Dr. Davis and Ms. Jin of admission to . Phoned [facility] , they confirmed that invega is given by [facility], and Dhaval's nurse is Nan. Plan to call the Nursing supervisor post wave, Kristie on Thursday - .
[2017-03-27 12:37] VITALS: BP 98/50
--- NOTE | 2017-03-27 13:14 | History & Physical ---
General Information and HPI History of Present Illness: This young male with previous history of psychiatric illness is admitted again to [facility] because of not feeling well. The patient reports that his mental state was not too good and he was feeling too depressed and suicidal and therefore called the ambulance and came to the hospital. He did not try any suicidal attempt. He claims that he is taking his medication regularly and he was getting injection every month in [place] for psychiatric medication. He denies any physical problems or any ongoing medical illnesses. He claims that he had some injuries in past and broke some bones as a child but does not have any primary physician and does not go to any medical doctor in the area. He claims he sees a psychiatrist in [place] on a regular basis. He is not employed at this time and claims that he is staying home with his mother and another brother who is in good health. He claims his father in his 50s from some lung cancer because he was a smoker. Patient was born in [place] but came to [place] about 25 years ago when he was only 11 that is old. His admits to smoking about half a pack of cigarettes a day but denies doing any other drugs or drinking Allergies/Medications Allergies: Coded Allergies: Pork/Porcine Containing Products (AGAINST TENRIISM 07/13/16) benztropine (From COGENTIN) (RASH 07/13/16) haloperidol (From HALDOL) (TONGUE SWELLS 07/13/16) Home Med list Divalproex Sodium (Depakote) 500 MG TABLET.DR 2 TAB PO BID MENTAL HEALTH ( Reported) Lorazepam 0.5 MG TABLET 0.5 MG PO QPM ANXIETY (Reported) Paliperidone Palmitate (Invega Sustenna) 234 MG SER 1 SYR IM Q30D MENTAL HEALTH (Reported) Past History Travel History Traveled to [place] past 21 day No Medical History Neurological: NONE EENT: NONE Cardiovascular: NONE Respiratory: NONE Gastrointestinal: NONE Hepatic: NONE Renal: NONE Musculoskeletal: NONE Psychiatric: anxiety, schizo affective disorder Endocrine: NONE Blood Disorders: NONE Cancer(s): NONE DIPPER FISH/Reproductive: NONE History of MRSA: No History of VRE: No History of CDIFF: No Isolation History: Standard Surgical History Surgical History: N Past Family/Social History Family History Relations & Conditions if any Relation not specified for: *No pertinent family history Psychosocial History Where do you live? Home Services at Home: None Primary Language: Chinese ETOH Use: denies use Illicit Drug Use: denies illicit drug use Functional Ability ADLs Independent: dressing, eating, toileting, bathing. Ambulation: independent IADLs Independent: shopping, housework, finances, food prep, telephone, transportation , medication admin. Review of Systems Review of Systems Constitutional: Reports: see HPI, malaise. EENTM: Denies: no symptoms. Cardiovascular: Denies: no symptoms. Respiratory: Denies: no symptoms. GI: Denies: no symptoms. Genitourinary: Denies: no symptoms. Musculoskeletal: Reports: see HPI. Skin: Denies: no symptoms. Neurological/Psychological: Reports: see HPI, anxiety, confusion, depressed, emotional problems, headache. Hematologic/Endocrine: Denies: no symptoms. Immunologic/Allergic: Denies: no symptoms. All Other Systems: Reviewed and Negative Exam & Diagnostic Data Last 24 Hrs of Vital Signs/I&O Vital Signs Date Time Temp Pulse Resp B/P B/P Pulse O2 O2 Flow FiO2 Mean Ox Delivery Rate 03/27 1237 47 98/50 03/26 1958 96.5 68 117/70 03/26 1803 97.8 58 20 120/62 97 Room Air 03/26 1623 57 110/60 03/26 1545 98.0 46 18 98/44 97 Room Air 03/26 1450 40 18 96/54 98 Room Air Intake & Output 03/27 1600 03/27 0800 03/27 0000 Intake Total Output Total Balance Patient 238 lb Weight Physical Exam General Appearance Alert, Oriented X3, Cooperative, No Acute Distress Skin No Rashes, No Breakdown, No Significant Lesion HEENT Atraumatic, PERRLA, EOMI, Mucous Membr. moist/pink Neck Supple, No JVD, No thryomegaly, +2 Carotid Pulse wo Bruit Lymphatic Cervical nl Cardiovascular Regular Rate, Normal S1, Normal S2, No Murmurs, Gallops, Rubs Lungs Clear to Auscultation, Normal Air Movement Abdomen Normal Bowel Sounds, Soft, No Tenderness, No Hepatospenomegaly, No Masses Neurological Exam Findings: Normal Gait, Normal Speech, Strength at 5/5 X4 Ext, Normal Tone, Cranial Nerves 3-12 NL Cranial Nerves II through XII: Within normal limits and grossly intact Extremities No Clubbing, No Cyanosis, No Edema, No Tenderness/Swelling Assessment/Plan Assessment: This young male was admitted to psychiatry again for increased depression and schizoaffective disorder. He reports that he has been taking his medication and denies any new medical illness. Is fairly stable from medical standpoint without any acute problems. His lab work including a CBC is reasonably normal and acceptable. His electrolytes are normal but embolism is slightly elevated probably due to her medication. There are no signs and symptoms of pancreatitis and abdominal exam is completely benign and therefore does not require any further workup or treatment As Ranked By This Provider Problem List: 1. Schizoaffective disorder 2. Anxiety 3. Depression 4. Psychosis 5. Bradycardia Miscellaneous Miscellaneous Documentation Attending Case Discussed With: MARIANA MAYFIELD,ELVIN Wayne Primary Care Physician: UNKNOWN Patient sees these Specialists none Level of Patient Care: GALILEO Garrison Attending MD Review Statement Attending Statement Attending MD Statement: examined this patient, reviewed EMR data (avail), discussed with nursing Attending Assessment/Plan: This young male is admitted for increasing depression and schizoaffective disorder and psychosis is stable from medical standpoint without any acute medical problems except for minor headaches and back pains etc. that only required a when necessary treatment. His minimal elevation of amylase is insignificant and does not require any treatment or workup is probably due to medication since his exam is completely benign. He will be seen as needed.
--- NOTE | 2017-03-27 13:34 | NUR ---
PT ISOLATED IN HIS ROOM MOST OF THE MORNING.HE WAS OOB FOR VS AND MEALS AND MEDS. HE DID NOT ATTEND GROUP. HIS AFFECT IS FLAT AND HIS MOOD APPEARS DEPRESSED. HE DENIED THOUGHTS OF SUICIDE OR SELF HARM
--- NOTE | 2017-03-27 15:41 | SOCIAL WORKER TX PLAN PSYCH ---
Treatment Plan - Please Document: - Evidence that there is ongoing collaboration between - the patient and the interdisciplinary team, - including the patient's active participation and - responsibility for engaging in the treatment regimen, - and that the treatment plan is individualized and - relevant to the patient's conditions. - Treatment plan should reflect documentation indicating - that all active therapeutic efforts are included. Strengths/Capabilities: Supportive family Engaged in outpatient tx Able to ask for help when needed Physical Limitations (Interventions): None identified Patient Identified Trmt Goals: "I want to stop the voices." Discharge Plan: Referral to [facility] - Dr. Davis, Act Team CECILIA Toure Visiting nurse Problem/Goals #1 Problem #1: psychosis Goal (Short Term): Eliminate command AH, be safe on unit, 15min checks. Inform staff if hearing voices. Talk to staff about thoughts and feelings. Identify triggers - family leaving for [place] (Mother and sister). Goal (Privacy Director): Maintain stable mood, verbalize no psychosis, no command AH/VH. Remain compliant with medications. engage in treatment and aftercare. Interventions: Provide support, education on symptoms and symptom management. Modalities: CBT, DBT, IA modalities, accupuncture, activity groups, SA/MH groups. DSM5/PS Stressors/Medical Prob Diagnosis' (DSM 5, Stressors, Medical): Schizoaffective D/O (F25.0) recent medication stoppage unemployed Current GAF: 25 Treatment Team - Responsibilities of members of the treatment team include: - Medication Management- MD or VP HOME HEALTH - Medication Administration and Monitoring- Nurse - Group Therapy- Occupational Therapist - 1:1 Therapy,Disch Planning,family involvement-Herbicide Service Sales Representative
[2017-03-27 15:53] VITALS: BP 118/60
--- NOTE | 2017-03-27 18:48 | CPS MD/APRN INITIAL ASSE PSYCH ---
Psychiatric Admission Airport Utility Worker's Note Reviewed: Yes Patient Seen and Examined: Yes Identifying Information: This is the 7th [facility] admission since 06/2011 but the first since 12/2015 for a 36-year-old single (never ), childless man continuing to live with his mothe in [facility], and unemployed/on disability for an extensive period. Chief Complaint: "I'm hearing voices saying to do bad and negative things...they are saying very, very bad things... like I should kill myself. I tried to ignore them, but I couldn't take it anymore; I had to come here [he feels 'safe']." Reaction to Hospitalization: actively seeking admission to hospital History of Present Illness Onset of Illness: Patient said he stopped taking his medications "two days" ago but started hearing disturbing voices and came into the E.D. for help. Patient claims he discontinued medications because he "did not think they were working" but things have clearly deteriorated since. Circumstances Leading to Admission: --self-reported discontinuation of medications followed by very rapid decompensation Problem(s) Justifying Need for Admission: --command type auditory hallucinations instructing patient to do harm to self (? and others) Other HPI: All information available at this time indicates that patient's "decompensation " is a recent phenomenon though his sister said he "hasn't done well on his medications for the past few years...he is always paranoid, doesn't want to do anything, never leaves the house, is too dependent on [his] mother...he will have to 'grow up' and be without his mother for a month." Past Psychiatric History Past Diagnosis(es)- if any: upon most recent [facility] discharge, 12/19/2015: Schizoaffective Disorder, Depressed, with Psychotic features (command auditory hallucinations) ANTWON (per Dr. Yang) hx of mild elevation in amylase hx of elevated lipids Past Precipitating Factors- if any: --family relations problems, mostly with older brother Mini but also sister Mnadi --being rejected for jobs (or the stress of getting one) --noncompliance with medications (e.g. resistance to taking depot injectables) - Include inpatient and outpatient treatment Treatment History: Patient has been a longtime outpatient at [facility] and previously admitted to [facility] 6 times since 2010. He has mostly led an isolated life but apparently makes most of his clinic appointments and comes into hospital voluntarily, usually on his own initiative. There had been a longtime attempt by treaters at [facility] to stabilize him on Clozapine but (at least during [facility] admissions) he always rejected this due to not wanting the initial weekly bloodwork. Patient had been started on Invega Sustenna sometime in the second half of 2013 but by the time of admission to [facility] in 10/2014 was no longer willing to take it any longer; it was not listed on discharge medications from [facility] in 08/2015 but was in 12/2015, his most recent discharge from here. History of Suicide Attempts or Gestures denied history of suicide attempts Substance Abuse History: denied; acknowledges only smoking tobacco from a hooka once a day Allergies: Coded Allergies: Pork/Porcine Containing Products (AGAINST BUDDHIST 07/13/16) benztropine (From COGENTIN) (RASH 07/13/16) haloperidol (From HALDOL) (TONGUE SWELLS 07/13/16) Home Med List: Depakote ER, 1,000mg 2x/day Invega Sustenna, 234mg I.M. Q4W Ativan, 0.5mg HS - Include any medical condition(s) that may - impact the patient's recovery/remission Past History Medical History Neurological: NONE EENT: NONE Cardiovascular: hyperlipidemia Respiratory: NONE Gastrointestinal: NONE Hepatic: NONE Renal: NONE Musculoskeletal: NONE Psychiatric: schizo affective disorder (hx command aud. hallucinations), schizophrenia (R/O Schizophrenia (paranoid)) Endocrine: NONE Blood Disorders: NONE Cancer(s): NONE CUSTOMER SERVICE SECURITY OFFICER/Reproductive: NONE History of MRSA: No History of VRE: No History of CDIFF: No Isolation History: Standard Surgical History Surgical History: none Psychiatric Family/Social Hx Family History Psychiatric Illness: denied Substance Use: denied Suicides: denied Other Family History: heritage of [place] and [place] Social History Living Situation: (see above, under "Identifying Information") Significant Relationships (family/friends): --only significant contacts appear to be with mother with whom he has resided for many years, perhaps essentially all his life; his older brother Mini and sister Mandi (latter lives in [place]) --has seen treaters at [facility] for many years Education: some college (and said to have taken courses in "criminal justice") Vocation/Occupation: essentially unemployed/disabled for many years Legal: denied Other Social History: has told me in the past that what he wants in life are "a job, my own apartment and a girlfriend" but to my knowledge he has not been successful in the past at any of these and appears to have not even tried very often; he has described his life as "watching movies, listening to music and going out to eat" Healthly Behaviors Screening Tobacco Screening Tobacco Use from ED Docu: Current Daily Use (from a hooka once a day) Daily Tobacco Use Amount/Type: =< 4 Cigarettes daily, => 5 Cigarettes daily - If tobacco counseling indicated - the following topics are required. - #1 Recognizing dangerous situations. - #2 Coping Skills. - #3 Basic information about quitting. Status of Tobacco Cessation Counseling: #1, #2 AND #3 Completed Cessation Med Status: Pt Refused Cessation Meds Alcohol Screening - ETOH screen POS if BAL >=80 or Audit-C>= M4/F3 Audit-C Score from Diag Assess: 0 Blood Alcohol Level: JEFFERY = less than 10.0 Alcohol Use Screening Results: Neg per Audit C &/or BAL - If ETOH counseling indicated - the following topics are required. - #1 Express concern about the patient's - drinking at unhealthy levels, include informing - of national norms for moderate drinking: - men <= 14 drinks/week, max 4 drinks/occasion - women <= 7 drinks/week, max 3 drinks/occasion - #2 Providing feedback, including linking alcohol to - negative physical effects (liver injury, hypertension) - negative emotional effects (relationship problems and - depression) - negative occupational consequences (reduced work - performance) - #3 Advising the patient to abstain from alcohol or - to drink below national norms for moderate drinking - (as listed above). Status of ETOH Use Counseling: N/A B/C NO ETOH Use Metabolic Screening - Screen if on a Neuroleptic Medication - Metabolic screening should include: - Blood Pressure, BMI, Glucose or Hgb A1c, & a - Lipid profile from within the past 365 days. Metabolic Screening () Not Applicable, patient not on a neuroleptic. OR ([x]) Patient on a neuroleptic(s) . Enter below results for Glucose or Hemoglobin A1C, and lipid panel if obtained during the last 365 days. BMI: Blood Pressure: 122/61 Laboratory Results (If applicable): [x] glucose = 87 (all drawn on 03/13/2017) cholesterol = 206 triglycerides = 238 HDL = 46 LDL = 113 Exam and Plan Mental Status Examination Ambulation Status: without assistance Appearance: rather stiff, uncomfortable/awkward appearing large overweight man Attitude towards examiner: mildly positive (recalls me favorably from previous [facility] admissions) Psychomotor activity: reduced but not retarded, little spontaneous movement, sitting rather stiffly in chair Behavior: pleasant, polite, appropriate generally though, again not very spontaneous Quality of speech: soft, slow, deliberate Affect: constricted (did smile once and that smile briefly lit up the way he looked) Mood: serious but not sullen, claimed euthymia though looked somewhat sad Suicidal Ideation: denied Homicidal Ideation: denied Hallucinations: denied Paranoid/Delusional Material: no overt expression of clear paranoid ideation; not evidence of diana or fixed delusions (though not very spontaneous and forthcoming with information) Difficulties with thought organization: none obvious but somewhat a paucity of expressed thought Insight: limited; poor (e.g. no understanding or even association in his mind that current presentation might have something to do with, relate somehow to the imminent planned month long family trip to [place] Judgment: superficially sound but limited Orientation: full (knows where he is and very relieved to be here at this time) Cognition: grossly intact, without noted focal deficits, even Memory Function: somewhat limited, vague but perhaps more out of guardedness, mild paranoia than actual deficit Estimate of intellectual functioning: average Assets/Strengths Patient Identified Assets/Strengths: --has caring and supportive family --proud of his rayna and Portuguese background --wants to work if he "can find a job" --wants to be independent, self-supporting, in his own place/apartment Impression/Plan Impression and Plan: I am familiar with this patient and to some extent his family (particularly brother and sister) from previous [facility] admissions. Though patient said he had "stopped all [his] medications two days ago" and suffered recurrence of command auditory hallucinations only since then telling him to "do bad things, harm myself," in actuality he is on Invega Sustenna depot injections and next dose of this medication is not due until 03/31/2017; on the other hand, he is in his last week of previous treatment and the Invega concentration in his system may possibly have been falling to some extent. His valproic acid level in the E.D. GROMMET WORKER was over 100! Since patient is currently on the highest recommended dose of Invega Sustenna, I have written a PRN order for oral Invega; patient knows to utilize the PRN if auditory hallucinations recur over the coming weekend. The procimal stressor leading up to current presentation must certainly be his mother and sister's imminent planned trip to visit relatives in [facility]; he is expected to go with them; one of the first things he said to me is that "my mother and sister are going to [place] but now that I am in the hospital I will not be able to go [expressed without the slightest sense of disappointment on his part]." He was already planning that possibly his older brother would come to mother's home to be with him while the latter is away. His reluctance to accompany his mother and sister may not be a an motivation not completely consciously perceived by patient at this time (that he is both anxious/phobic of making the trip but also of being without his mother for a full month). - Include all active medical diagnosis that require tx DSM 5 Diagnosis(es): Schizoaffective Disorder; MRE Mixed with prominent psychotic features (epecially command auditory hallucinations) R/O Schizophrenia with paranoid features (exacerbation of above disorder likely related to family trip to [place] which is imminent and about which he is likely highly ambivalent, conciously or unconsciously so) - Initial Tx Plan for Active Psych & Medical Conditions Treatment Plan: --plan to given next depot injection of Invega Sustenna, 234mg, as due on 2016 --for the present will supplement with doses of oral Invega as patient on maximum recommended depot --will continue current dose of Depakote ER and check valproic acid level after several days --will have a family meeting early next week (currently sister is planning to come from [facility] [facility] to meet with us but patient has refused to allow either his mother or brother to join the family meeting) --will consider offering patient intensive aftercare in either our own IOP or one with his ongoing longtime outpatient treaters at [facility] in [place], [place] (his catchment area as he lives in [place]) - Factors that would help patient function - in a less restrictive setting. Factors: --improvement on addition/utilization of oral Invega (onto maximum dose of depot Invega Sustenna) --prompt family meeting attended by closest relatives (with plan for someone "looking in on patient regularly if he does not go with mother and sister on planned trip to [place]
[2017-03-27 19:53] VITALS: BP 122/61
--- NOTE | 2017-03-27 20:56 | NUR ---
PT IS CALM, COOPERATIVE WITH STAFF AND PEERS, AND COMPLIANT [facility] UNIT RULES. PT IS OFTEN IN [place], THOUGH STAYING IN THE PERIPHERY WITH LIMITED INTERACTION IWHT OTHERS. PT WILL INTERACT WHEN DIRECTLY ENGAGED. MOOD IS STABLE, AFFECT APPEARS EUTHYMIC, COMMUNICATION IS ORGANIZED AND APPEARS NORMAL IN ALL RESPECTS, AND APPETITE IS NORMAL. PT DENIES SI AT THIS TIME.
--- NOTE | 2017-03-28 04:18 | NUR ---
SLEPT ON AND OFF.
--- NOTE | 2017-03-28 14:08 | NUR ---
PT HAS BEEN ISOLATIVE IN ROOM FOR THE WHOLE SHIFT REFUSING TO REPOND TO STAFF PROMPTING. PT DID NOT GET UP FOR VITALS THIS MORNING AND DID NOT EAT BREAKFAST. PT GOT UP AROUND 1300, TOOK HIS MEDS AND ATE LUNCH. PT IS NOT ATTENDING GROUPS. PT MOOD IS STABLE WITH A CONSTRICTED AFFECT. PT DENIES SI THOUGHTS AT THIS TIME.
[2017-03-28 16:06] VITALS: BP 127/73
--- NOTE | 2017-03-28 16:14 | CP SOUTH PROGRESS NOTE PSYCH ---
Psych (Inpt) Progress Note Progress Note Include the following elements, when applicable: Involvement in the active treatment of the patient with behavioral observations of the patient and the patient's response to the treatment. Review of the ongoing treatment process in the context of the treatment plan. Indication of how multi-disciplinary staff members are carrying out the treatment plan. Plans for future interventions and recommendations for revision of the treatment plan. Liaison with other physicians/providers. Progress Note: The patient was seen for follow-up for schizoaffective disorder, and exacerbation as a result of patient's noncompliance with medication. We discussed the progress and involvement of the patient in the unit activities with the nursing staff. We individually interviewed the patient. As per nursing staff he is appropriate in his interactions with peers and staff members. He is compliant with medication. He keeps mostly to himself and has limited interactions with peers. He does participate in groups. The patient is a tall, dark skinned male with well articulated, goal-directed, accepted speech. His thought processes linear, we did not detect any delusional ideation or abnormal thinking. The patient states: "now I understand that I cannot do without medication. I that I was able to be okay and not take the medication. I was proven wrong. Now I know I have to take my medication." The patient reports that the medication helps with "voices" and the fact "they are better now" The patient sleeps and eats well, vital signs are within normal limits, he does not have any physical complaints We will continue observation, medication management, and discharge planning ( most likely IOP)
[2017-03-28 20:09] VITALS: BP 121/66
--- NOTE | 2017-03-28 21:12 | NUR ---
PT IS VISIBLE ON UNIT, COLORING IN KITCHEN WITH PEERS BUT NOT INTERACTING MUCH WITH THEM. COOPERATIVE AND COMPLIANT WITH STAFF. NO COMPLAINTS OR SI REPORTED. PT HAS A STABLE MOOD AND CONSTRICTED AFFECT.
[2017-03-29 12:10] VITALS: BP 117/61
--- NOTE | 2017-03-29 13:09 | NUR ---
PT IS COMPLIANT AND COOPERATIVE WITH UNIT RULES. PT IS VISABLE IN THE COMMUNITY BUT DOES NOT INTERACT MUCH WITH PEERS. PT IS NOT ATTENDING GROUPS. PT REFUSED 0800 VITALS AND DID NOT GET OUT OF BED UNTIL 1200. PT MOOD IS STABLE WITH A CONSTRICTED AFFECT. PT DENIES SI THOUGHTS.
--- NOTE | 2017-03-29 13:43 | CP SOUTH PROGRESS NOTE PSYCH ---
Psych (Inpt) Progress Note Progress Note Include the following elements, when applicable: Involvement in the active treatment of the patient with behavioral observations of the patient and the patient's response to the treatment. Review of the ongoing treatment process in the context of the treatment plan. Indication of how multi-disciplinary staff members are carrying out the treatment plan. Plans for future interventions and recommendations for revision of the treatment plan. Liaison with other physicians/providers. Progress Note: The patient was seen for follow-up doing continuum of care. We interviewed the patient individually and discussed him with the nursing staff. According to the nursing staff he has been having interrupted sleep. He did take melatonin at bedtime which might have helped some. He was reportedly keeping to himself and interacting appropriately with peers and the staff members. He is eating well and his vital signs have been within normal limits. Upon our individual meeting, the patient complains of difficulty falling asleep inducing fatigue the day after. Is requesting Ativan stating that "this is the only thing that helps me sleep soundly. I have been on it for years." The patient stated that he is unable to take trazodone because of an allergic reaction, stated that he had been on Remeron and it was not helpful he basically eliminated all other possibilities with the exception of Ativan. We explained to the patient about the addicting nature of tea lorazepam. We explained about the development of tolerance to this medication. The patient continues to insist that it was the only medication which worked for him. Besides sleep complaints he continued to complain about depression and anxiety but to a lesser extent than previously. He continues to have auditory hallucinations but his thought processes are better (as per patient and our objective observation). The patient was advised to bring up his concern about sleep to the treatment team tomorrow. We encouraged him to take melatonin and not wait until she is unable to fall asleep but take it in the past. Patient agreed to do so. The patient is improving slowly but needs continuous inpatient care being that he is still hearing voices and his still anxious and depressed. He denies suicidal/homicidal ideation, or side effects from medications which he is willing to continue. What will continue observation, symptom monitoring, medication management and discharge planning.
[2017-03-29 15:52] VITALS: BP 120/67
[2017-03-29 20:27] VITALS: BP 118/70
--- NOTE | 2017-03-29 22:59 | NUR ---
PATIENT ALERT AND ORIENTED X3, STILL SOMEWHAT CONSTRICTED IN AFFECT; MOOD CALM, COOPERATIVE; PATIENT STILL ISOLATING IN ROOM FOR LONG STRETCHES BUT PERIODICALLY APPEARS IN MILEU; VITAL SIGNS WNL; NO SIGNS OF PSYCHOSIS AT THIS TIME.
--- NOTE | 2017-03-30 06:15 | NUR ---
PATIENT WAS AWAKE SEVERAL TIMES DURING THE NIGHT, RESTLESS; HE WAS GIVEN PRN INVEGA AND NEURONTIN AT 2332; LATER IN NIGHT WHEN PATIENT STILL AWAKE STAFF OFFERED TO CALL MD AND GET ADDITIONAL ORDER, HE POLITELY DECLINED, STATING HE JUST WANTED WATER; AFFECT REMAINS SOMEWHAT CONSTRICTED.
[2017-03-30 08:08] VITALS: BP 110/56
[2017-03-30 12:21] VITALS: BP 113/66
--- NOTE | 2017-03-30 13:10 | NUR ---
PT HAS BEEN WITHDRAWN AND ISOLATIVE IN ROOM MOST OF DAY, SLEEPING ON AND OFF. PT MOOD IS STABLE WITH A FLAT AND EUTHYMIC AFFECT. PT DENIES SI AT THIS TIME, NO COMPLAINTS OFFERED. PT HAS LITTLE INTERACTION WITH OTHERS WHILE IN COMMUNITY. PT HAS REFUSED GROUPS. VITALS ARE STABLE, APPETITE IS GOOD.
--- NOTE | 2017-03-30 14:50 | SOCIAL WORKER PROG NOTE PSYCH ---
Social Work Progress Note Progress Note Discussed Tiffanie with Dr. Suarez, his progress and course of treatment. Met with Tiffanie he stated, "I am feeling much better now." He denied hearing any command hallucinations - no auditory or visual. He denies SI/HI. He had no visits from family over the weekend, but spoke with his Mother and sister, Lanette. His Mother had back surgery and cannot drive, he is concerned about how he will get home. Tiffanie stated he slept well last night, and appetite is good. Spoke with Lanette, his sister who stated she is the Conservator of Tiffanie (person, finances and medical). She will fax the conservator papers tomorrow 03/31/17. Plan for meeting over the phone with Lanette at 11am on 03/31. She stated she feels the medications are not working. She stated that Tiffanie is isolates at home and just smokes Hookah all night, she stated he is up all night too. She stated he is paranoid. Informed Lanette of the medications Tiffanie is on currently. Plan to discuss further in meeting with Dr. Suarez. SPoke with Juan Kong, LITO of [facility] of the ACT Team. Juan stated he has worked with Tiffanie for the past 3yrs. Tiffanie has been inconsistent with attending groups over the past 6 weeks. He stated Tiffanie often goes to the ER after the Invega injection, and [facility] has difficulty getting Tiffanie in to the clinic for the injection - he will miss groups, avoid coming in. They stated usually Tiffanie comes in , but doesn't like the injections and feels ' overmedicated" and wants blookwork done at the ER ([facility]). Juan stated Tiffanie doesn't take his evening medications - prepour from [facility]. He stated his sister, Lanette is conservator, and recently got forms up to date. Tiffanie is driving - family shares 1 car. He attends Tues. 1pm Health group with Dr. Cisneros, and 2pm Dual Diagnosis group with Juan Kong, as well as a 10:30am Wrap Group on Fridays. Tiffanie has been referred to [facility] - to work with a health care / medical job titles but has missed several appointments. Left Voicemail for Adeline Hook LCSW - clinician that works with Tiffanie at [facility]. 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 Completed P review for continued stay.
[2017-03-30 19:56] VITALS: BP 125/65
--- NOTE | 2017-03-30 21:36 | CP SOUTH PROGRESS NOTE PSYCH ---
Psych (Inpt) Progress Note Progress Note Include the following elements, when applicable: Involvement in the active treatment of the patient with behavioral observations of the patient and the patient's response to the treatment. Review of the ongoing treatment process in the context of the treatment plan. Indication of how multi-disciplinary staff members are carrying out the treatment plan. Plans for future interventions and recommendations for revision of the treatment plan. Liaison with other physicians/providers. Progress Note: PSYCHIATRIST NOTE, 03/30/2017: I discussed this patient's progress to date, current mental status, treatment and discharge planning with staff team today in the daily morning ITTM and also met with him again myself in individual session. Patient's serum valproic acid level this morning was well in therapeutic range at 92.9mcg/ml, but interestingly, valproic acid concentration at the time of presentation to the E.D. DIRECTOR IMMUNOLOGY was even HIGHER, at 104.7! When I confronted patient with regard to these findings in view of his repeated statements that he had "stopped all medications two days ago" he just smiled in an embarassed manner and then said "well, I had stopped my Ativan [0.5mg HS!]" which obviously would not have had any tendency to engender rapid and significant deterioration in clinical status with emergence of command auditory hallucinations. This, combined with the fact that patient was NOT behind with his Invega depot injections (still not due for next I.M. until tomorrow, 03/31/2017) tends to reinforce the theory that the major stressor and precipitant to current admission is mother and daughter's planned trip to [place] in the near future; he appears to be highly ambivalent about accompanying and also worried about being home without his mother (sister has confirmed the latter).
--- NOTE | 2017-03-30 22:05 | NUR ---
PT IS VISIBLE ON UNIT, MOSTLY STAYING TO HIMSELF AND WATCHING TV IN LOUNGE. MINIMAL INTERACTION WITH PEERS, COOPERATIVE AND COMPLIANT WITH STAFF. ATTENDED WRAP UP MEETING AND PARTICIPATED. NO COMPLAINTS OR SI REPORTED. PT HAS A STABLE MOOD AND FLAT/CONSTRICTED AFFECT.
--- NOTE | 2017-03-31 07:29 | NUR ---
PT PREOCCUPIED. PT SLEPT ON MATTRESS IN GROUP ROOM DUE TO ROOMMATE'S SNORING. PT SLEPT.
[2017-03-31 08:14] VITALS: BP 112/59
--- NOTE | 2017-03-31 12:07 | SOCIAL WORKER PROG NOTE PSYCH ---
Social Work Progress Note Progress Note Discussed Dhaval with Dr. Suarez today. Spoke with Dhaval, he states he is ready to discharge, denied SI/HI, denies AH/VH. He is attending groups. Discussed his discharge plan to see Dr. Cisneros and attend groups. Phoned Lanette today discussed Dhaval's progress and discharge planning. Lanette stated she could not Fax the Conservator Forms today but will tommorrow. Lanette stated she wants Dhaval to discharge directly to home - no one can pick him up (no one in the family), but she'd like a cab to bring him home ( [employer]??). Expected discharge 04/02. Spoke with Adeline Hook LCSW of [facility] and scheduled an appointment for Dr. Cisneros for 04/02/17 at 1pm. Informed [facility] that Dhaval received his injection (Invega) today. [facility] wants Dhaval to be seen by Dr. Cisneros same day of discharge. Spoke with SONYA Flowers Chlorinator Operator of [facility] - she stated they can do same day of discharge - resume care on 04/02/17 in the afternoon. Recommended daily BID medication administration. [facility] will check Dhaval's insurance to make sure this is covered.
[2017-03-31 12:31] VITALS: BP 112/56
--- NOTE | 2017-03-31 13:51 | NUR ---
PTS AFFECT IS FLAT AND HE STATES HE HAS NO SUICIDAL THOUGHTS AND HE DENIES AH. PT DOES APPEAR PREOCCUPIED AT TIMES. HE IS COMPLIANT WITH HIS MED REGIME AND WITH STAFF REQUESTS
[2017-03-31 15:56] VITALS: BP 99/56
[2017-03-31 16:24] VITALS: BP 99/56
--- NOTE | 2017-03-31 16:59 | CP SOUTH PROGRESS NOTE PSYCH ---
Psych (Inpt) Progress Note Progress Note Include the following elements, when applicable: Involvement in the active treatment of the patient with behavioral observations of the patient and the patient's response to the treatment. Review of the ongoing treatment process in the context of the treatment plan. Indication of how multi-disciplinary staff members are carrying out the treatment plan. Plans for future interventions and recommendations for revision of the treatment plan. Liaison with other physicians/providers. Progress Note: PSYCHIATRIST NOTE, 03/31/2017: I discussed this patient's progress to date, current mental status, treatment and discharge planning with staff team today in the daily morning ITTM and also met with him again myself in individual session. Patient received his biweekly Invega Sustenna (234mg) injection this morning without complications. He slept fairly well last night but had to move to the group room because his roommate's loud snoring kept interrupting his sleep. He denies daytime sedation or excessive fatigue associated with his medications (now on a dose of oral as well as I.M. Invega with apparent benefit, e.g. more spontaneously speech, less guarded/paranoid). Patient is looking forward to going home tomorrow or the next day. Apparently, mother and sister are not planning to travel to [place] until late April or May of this year; this has likely been a source of relief to patient.
[2017-03-31 19:56] VITALS: BP 123/61
--- NOTE | 2017-03-31 21:12 | NUR ---
PT IS CALM, COOPERATIVE WITH STAFF AND PEERS, AND COMPLIANT WITH UNIT RULES. PT IS OFTEN IN [place]U, INTERACTING TO SOME EXTENT WITH OTHERS. CAN BE SLIGHTLY WITHDRAWN AT TIMES. PT HAS BEEN OBSERVED LAUGHING TO SELF ON OCCASSION. MOOD IS STABLE, AFFECT IS FLAT/CONSTRICTED, COMMUNICATION IS ORGANIZED AND APPEARS NORMAL IN ALL REPSECTS, AND APPETITE IS NORMAL. PT DENIES SI AT THIS TIME.
--- NOTE | 2017-04-01 05:46 | NUR ---
PT LESS PRE-OCCUPIED. PT SLOW MOVING. PT SLEPT ON HIS MATTRESS IN THE GROUP ROOM DUE TO ROOMMATE'S LOUD SNORING. PT UP TO THE TOILET A FEW TIMES, BUT APPEARED TO SLEEP WELL.
[2017-04-01 07:36] VITALS: BP 112/60
--- NOTE | 2017-04-01 09:54 | SOCIAL WORKER PROG NOTE PSYCH ---
Social Work Progress Note Progress Note Discussed Dhaval with Dr. Suarez. Dhaval stated he is ready to go home, denied SI /HI, denied AH/VH, no command hallucinations. Dhaval stated he will foloow-up at [facility] - has appointment with Dr. Cisneros on . 04/12/17 at 1pm. He will also see Adeline Jin LCSW (ACT Team high school social science teacher) at that time. Spoke with Ms. Hook and she will black pickler Dhaval from home and bring him to his MD appointment. Dhaval will attend (3) groups per week - Tuesdays 1pm Health group with Dr. Cisneros, and 2pm Dual Focus Group as well as a Wrap group on at 10:30am. Spoke with Dhaval's sister, Lanette Yousef today and informed her of Dhaval's discharge plan, which she is in agreement with and seemed grateful especially for the BID nursing x7 days per week. Lanette faxed a Interim Financial Report that indicated she was conservator (dated from 04/06/14-11/15/16)but was incomplete (only 1 page) asked for additional pages - she stated she will Fax by Thursday. [facility] Visiting nurse will resume services today, 04/01/17 at 3pm (at Dhaval's home) and provide BID medication administration x7days per week. Dhaval was given a Smoking Cessation group referral for [facility] 04/15/17 at 4pm at [address], with Yolanda Gant LCSW. [place] V: family issues, social isolation, chronic mental illness, unemployed Discharge GAF: 43
--- NOTE | 2017-04-01 11:22 | NUR ---
PT IS TENTATIVELY SCHEDULED FOR D/C TO [facility] TODAY. HE REPORTS AND DEMONSTRATES IMPROVEMENT IN HIS MOOD AND ABILITY TO FUNCTION. HE DENIES SUICIDAL THOUGHTS OR THOUGHTS OF SELF HARM. HE DENIES AH AT THIS TIME.HE IS COMPLIANT WITH HIS MED REGIME AND STATES HIS FOLLOW UP IS WITH [facility] IN [place]. PT IS GIVEN EDUCATION R/T MANAGING HIS MOOD D/O AND ON SUICIDE PREVENTION
[2017-04-01 12:10] VITALS: BP 117/58
[2017-04-01] MEDS ORDERED: INVEGA3 MG PO (13:24)
--- NOTE | 2017-04-01 16:03 | CP SOUTH PROGRESS NOTE PSYCH ---
Psych (Inpt) Progress Note Progress Note Include the following elements, when applicable: Involvement in the active treatment of the patient with behavioral observations of the patient and the patient's response to the treatment. Review of the ongoing treatment process in the context of the treatment plan. Indication of how multi-disciplinary staff members are carrying out the treatment plan. Plans for future interventions and recommendations for revision of the treatment plan. Liaison with other physicians/providers. Progress Note: PSYCHIATRIST NOTE (DISCHARGE), 04/01/2017: I discussed this patient's progress to date, current mental status, treatment and discharge plans with staff team today in the daily morning ITTM and also met with him again myself in individual session prior to discharging him to resume his ongoing usp outpatient treatment with the [facility] in [place] where he has an appointment to see his treating outpatient psychiatrist, Dr. Davis next tomorrow, 04/02/2017, at 1pm (will be picked up for that appointment by Adeline Hook LCSW, who will also meet with him then; patient has an appointment for IOP on 04/07/2017 at 2pm and health group that same afternoon at 1pm (and every Thursday) and WRAP Meeting at 10:30am. Patient will also increase daily visiting nurse appointments ([facility]) from once to twice a day, beginning on afternoon of discharge, 04/01/2017. I also gave patient an appointment card for the [facility] scheduled for 04/15/2017 at 4pm, facilitated by Yolanda Gant LCSW. Patient is currently euthymic with improved affect (I don't think I have ever seen him smile this much during any previous [facility] admission), continuing to deny depressed mood, demonstrating positive view of his future, showing no evidence of suicidal or homicidal ideation, plans intent or impulses and well aware of his safety plan should he ever in future come to believe himself at acute risk of self-harm or harming others. I called into [facility] in [place], [place], on date of discharge, 2016: Invega 3mg: i tab nightly at HS (3mg/night); #14 with no refill (to clarify thoughts) Depakote ER, 500mg: i daily in AM iii(3) evenings (total 2,000mg/day); #56 with no refill (to stabilize moods) (next Q4W dose of Invega Sustenna, 234mg I.M., will be given by the ACT Team on 04/28/2017) patient was also encouraged to utilize nicotine patch or gum OTC to help reduce cravings for tobacco/cigarettes and given an appointment card for the [facility]oking Cessation Group meeting scheduled for 04/15/2017 at 4pm
--- NOTE | 2017-04-01 16:04 | DISCHARGE SUMMARY REPORT-PSYCH ---
Visit Information Visit Dates/Diagnosis' Admission Date: 03/26/17 Discharge Date: 04/01/17 Reason for Admission: "I'm hearing voices saying to do bad things...they are saying very, very bad things, like I should kill myself. I tried to ignore them, but I couldn't take it anymore; I had to come here...I feel safe here." Psy Discharge Primary Diag: Schizoaffective Disorder, Mixed; MRE with psychotic Features (command type auditory hallucinations) Psy Discharge Secondary Diag: R/O Schizophrenia Hospital Course Significant Lab Findings: glucose = 132; amylase = 146; RBC = 4.51, HGB = 13.9, HCT = 40.8, grans 40.4%; cholesterol = 206, triglycerides = 238; JEFFERY = less than 10.0; urine for drugs of abuse--negative (for complete details of all normal range laboratory data from this admission, see the electronic medical record) Course Complications: none Consultations: patient was seen for an admission medical H&P and followed medically during this admission by Lisa Rodriguez M.D. Allergies: Coded Allergies: Pork/Porcine Containing Products (AGAINST CHRISTIAN 07/13/16) benztropine (From COGENTIN) (RASH 07/13/16) haloperidol (From HALDOL) (TONGUE SWELLS 07/13/16) Hospital Course/TX Response: (see also, all initial/admission assessments, daily M.D./CONTROL SYSTEMS DEVELOPER and MEDICAL RECORDS SECRETARY progress notes from this admission in the electronic medical record) I am familiar with this patient and to some extent his family (particularly brother and sister) from previous [facility] admissions. Though patient said he had "stopped all [his] medications two days ago" and suffered recurrence of command auditory hallucinations only since then telling him to "do bad things, harm myself," in actuality he is on Invega Sustenna depot injections and next dose of this medication is not due until 03/31/2017; on the other hand, he is in his last week of previous treatment and the Invega concentration in his system may possibly have been falling to some extent. His valproic acid level in the E.D. ORDER DEPARTMENT SUPERVISOR was over 100! Since patient is currently on the highest recommended dose of Invega Sustenna, I have written a PRN order for oral Invega; patient knows to utilize the PRN if auditory hallucinations recur over the coming weekend. The proximate stressor leading up to current presentation must certainly be his mother and sister's imminent planned trip to visit relatives in [facility]; he is expected to go with them; one of the first things he said to me is that "my mother and sister are going to [place] but now that I am in the hospital I will not be able to go [expressed without the slightest sense of disappointment on his part]." He was already planning that possibly his older brother would come to mother's home to be with him while the latter is away. His reluctance to accompany his mother and sister may not be a an motivation not completely consciously perceived by patient at this time (that he is both anxious/phobic of making the trip but also of being without his mother for a full month). Patient agreed to resume his ongoing penitentiary outpatient treatment with the [facility] in [place] where he has an appointment to see his treating outpatient psychiatrist, Dr. Davis next tomorrow, 04/02/2017, at 1pm (will be picked up for that appointment by Adeline Hook LCSW, who will also meet with him then; patient has an appointment for IOP on 04/07/2017 at 2pm and health group that same afternoon at 1pm (and every Thursday) and WRAP Meeting at 10:30am. Patient will also increase daily visiting nurse appointments ([facility]) from once to twice a day, beginning on afternoon of discharge, 04/01/2017. I also gave patient an appointment card for the [facility]oking [facility]ess[facility] scheduled for 04/15/2017 at 4pm, facilitated by Yolanda Gant LCSW. Patient is currently euthymic with improved affect (I don't think I have ever seen him smile this much during any previous [facility] admission), continuing to deny depressed mood, demonstrating positive view of his future, showing no evidence of suicidal or homicidal ideation, plans intent or impulses and well aware of his safety plan should he ever in future come to believe himself at acute risk of self-harm or harming others. Discharge HBIPS - Tobacco Use Treatment Offered Post DC Medications Offered: Refused Tob Medication Tx Post DC Tobacco Treatment Plan: [facility] Tobacco Tx Pgm Program Appt Date: 04/15/17 - EtOH/Drug Use D/O Treatment Offered Post DC Medications Offered: NA-No EtOH/Drug Use D/O Post DC EtOH/SubAbuse TX Plan: NA-No EtOH/Drug Use D/O Metabolic Screening - Screen if on a Neuroleptic Medication - Metabolic screening should include: - Blood Pressure, BMI, Glucose or Hgb A1c, & a - Lipid profile from within the past 365 days. Metabolic Screening () Not Applicable, patient not on a neuroleptic. OR ([x]) Patient on a neuroleptic(s) . Enter below results for Glucose or Hemoglobin A1C, and lipid panel if obtained during the last 365 days. BMI: Blood Pressure: 117/58 Laboratory Results (If applicable): [x] glucose = 132 (on 03/26/2017) glycos hgb A1c = 5.1 (on 03/30/2017) cholesterol = 206 (all drawn on 03/13/2017) triglycerides = 238 HDL = 46 LDL = 113 Discharge Instructions General Discharge Information Discharge Medications: I called into [facility] in [place], [place], on date of discharge, 2016: Invega 3mg: i tab nightly at HS (3mg/night); #14 with no refill (to clarify thoughts) Depakote ER, 500mg: i daily in AM iii(3) evenings (total 2,000mg/day); #56 with no refill (to stabilize moods) (next Q4W dose of Invega Sustenna, 234mg I.M., will be given by the ACT Team on 04/28/2017) patient was also encouraged to utilize nicotine patch or gum OTC to help reduce cravings for tobacco/cigarettes and given an appointment card for the [facility]oking Cessation [facility] meeting scheduled for 04/15/2017 at 4pm Multiple Neuroleptics: ([x]) Not Applicable OR Document below three failed attempts at monotherapy, or a plan to taper to monotherapy, or augmentation of Clozapine. () Patient's Diet: heart healthy Patient's Activity: without restrictions DC Disposition: to home Recommendations: Following an interval of outpatient stabilization I would recommend attempt be made to gradually taper current dose of oral Invega. Referred To: Patient agreed to resume his ongoing penitentiary outpatient treatment with the [facility] in [place] where he has an appointment to see his treating outpatient psychiatrist, Dr. Davis next tomorrow, 04/02/2017, at 1pm (will be picked up for that appointment by Adeline Hook LCSW, who will also meet with him then; patient has an appointment for IOP on 04/07/2017 at 2pm and health group that same afternoon at 1pm (and every Thursday) and WRAP Meeting at 10:30am. Patient will also increase daily visiting nurse appointments ([facility]) from once to twice a day, beginning on afternoon of discharge, 04/01/2017. I also gave patient an appointment card for the [facility]oking [facility]essation Group scheduled for 04/15/2017 at 4pm, facilitated by Yolanda Gant LCSW. Copies To: ADRIENNE BROOKS,SETH
== END 2017-04-01 13:30 | DRG 885 ==
LOC: ERH 09:48 → CP SOUTH 03-26 12:15 → ERHI 03-26 12:15 → CP SOUTH 03-26 19:15 → ENPENDDIS 04-01 13:30
PROVIDERS: Emergency Medicine; ADMIT Psychiatry & Neurology Addiction Medicine
DX: F25.0 Schizoaffective disorder, bipolar type (principal)
CPT/HCPCS: 36415; 80307; 93005; 93010; G0463; G0480; J2426

== ENCOUNTER 2018-03-31 05:51 | Emergency (ER) | payer OTHER, MEDICARE ==
[~2018-03-31 05:51] MED LIST changes: +INVEGA SUS234 MG/1.5 IM; -INVEGA SUSTENN234 MG IM; +INVEGA3 MG PO; +LORAZEPAM0.5 M1 PO; +NICORELIEF2 MG PO; +TRAZODONE HCL100 M1 PO; +TRAZODONE HCL50 M1 PO
--- NOTE | 2018-03-31 06:02 | ED PSYCHIATRIC COMPLAINT ---
History of Present Illness General Chief Complaint: General Adult Stated Complaint: VISHAL MED REFILL Source: patient, old records, EMS Exam Limitations: no limitations Vital Signs & Intake/Output Vital Signs & Intake/Output Vital Signs Date Time Temp Pulse Resp B/P B/P Pulse O2 O2 Flow FiO2 Mean Ox Delivery Rate 03/31 0716 97.8 66 18 122/66 98 Room Air 03/31 0637 Room Air 03/31 0556 97.9 67 18 124/67 98 Room Air Allergies Coded Allergies: Pork/Porcine Containing Products (AGAINST ADVENTIST 07/13/16) benztropine (From COGENTIN) (RASH 07/13/16) haloperidol (From HALDOL) (TONGUE SWELLS 07/13/16) Uncoded Allergies: "ORAL THERMOMETER PLASTIC COVERS" (UNKNOWN 03/31/18) Triage Note: TRIAGE: VISHAL FROM HOME, SEEN RECENTLY AT [facility] FOR SAME, REQUESTS REFILLS OF DEPAKOTE AND ATIVAN. Triage Nurses Notes Reviewed? yes HPI: Patient brought in by ambulance. Patient states he just does not feel right. Patient has been seen at different hospitals for same complaints. Patient states that he ran out of his medications a few days ago. Patient denies suicidal or homicidal ideations. Patient denies any hallucinations or delusions. Patient states that he just wants to be admitted. (Surjit MAYFIELD,Tino Gay) Reconcile Medications Divalproex Sodium (Depakote) 500 MG TABLET.DR 2 TAB PO BID mood stabilizer ( Reported) Divalproex Sodium (Depakote) 500 MG TABLET.DR 2 TAB PO BID SCHIZO-AFFECTIVE Lorazepam 0.5 MG TABLET 1 TAB PO QPM ANXIETY (Reported) Lorazepam (Ativan) 0.5 MG TABLET 1 TAB PO QHS PRN INSOMNIA Nicotine (Nicorelief) 2 MG GUM 2 MG PO Q2P PRN nicotine craving Paliperidone (Invega) 3 MG TAB.ER.24 3 MG PO 2200 hallucinations/racing thoughts Paliperidone Palmitate (Invega Sustenna) 234 MG/1.5 ML SYRINGE 1 SYR IM Q30D MENTAL HEALTH (Reported) Trazodone HCl 100 MG TABLET 100 MG PO AT BEDTIME sleep Trazodone HCl 50 MG TABLET 50 MG PO AT BEDTIME PRN INSOMNIA (Micheal Larios DO) Past History Travel History Traveled to [place] past 21 day No Medical History Any Pertinent Medical History? see below for history Neurological: NONE EENT: NONE Cardiovascular: NONE (NO MEDS PER PATIENT), hyperlipidemia Respiratory: NONE Gastrointestinal: NONE Hepatic: NONE Renal: NONE Musculoskeletal: NONE Psychiatric: bipolar disease, schizo affective disorder (hx command aud. 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 No (Surjit MAYFIELD,Tino Gay) Review of Systems Review of Systems Constitutional: Reports: no symptoms. EENTM: Reports: no symptoms. Respiratory: Reports: no symptoms. Cardiovascular: Reports: no symptoms. GI: Reports: no symptoms. Genitourinary: Reports: no symptoms. Musculoskeletal: Reports: no symptoms. Skin: Reports: no symptoms. Neurological/Psychological: Reports: see HPI. Hematologic/Endocrine: Reports: no symptoms. Immunologic/Allergic: Reports: no symptoms. All Other Systems: Reviewed and Negative (Surjit MAYFIELD,Tino Gay) Physical Exam Physical Exam General Appearance: well developed/nourished, mild distress Head: atraumatic Eyes: Bilateral: PERRL, EOMI. Ears, Nose, Throat: normal pharynx, normal ENT inspection, hearing grossly normal Neck: normal inspection, supple Respiratory: normal breath sounds, chest non-tender, no respiratory distress, lungs clear Cardiovascular: regular rate/rhythm, normal peripheral pulses Gastrointestinal: normal bowel sounds, soft, non-tender Extremities: normal range of motion Neurological/Psychiatric: no motor/sensory deficits, awake, alert, calm, oriented x 3 Appearance/Memory/Insight: appropriate appearance Behavoir/Eye Contact/Speech: cooperative, normal speech, good eye contact Thoughts/Hallucinations: normal thought pattern, no apparent hallucination Skin: intact, normal color, warm/dry SAD PERSONS Done? CRISIS CONSULT OBTAINED (Surjit MAYFIELD,Tino Gay) Progress Differential Diagnosis: drug intoxication, drug overdose, drug withdrawal, electrolyte abnormality Plan of Care: Orders Procedure Date/time Status URINE DRUGS OF ABUSE 03/31 601 Complete ETHANOL 03/31 601 Complete DEPAKOTE LEVEL 03/31 601 Complete COMPREHENSIVE METABOLIC PANEL 03/31 601 Complete CBC WITHOUT DIFFERENTIAL 03/31 601 Active ED CRISIS PSYCH CONSULT 03/31 601 Active Laboratory Tests 03/31/18 0650: Anion Gap 15, Estimated GFR > 60, BUN/Creatinine Ratio 8.3, Glucose 97, Calcium 9.8, Total Bilirubin 0.6, AST 33, ALT 39, Alkaline Phosphatase 58, Total Protein 7.2, Albumin 4.3, Globulin 2.9, Albumin/Globulin Ratio 1.5, CBC w Diff MAN DIFF ORDERED, RBC 4.79, MCV 91.8, MCH 30.7, MCHC 33.5, RDW 13.9, MPV 6.2 L, Gran % 44.6, Lymphocytes % 42.4, Monocytes % 10.5 H, Eosinophils % 2.2, Basophils % 0.3, Absolute Granulocytes 4.3, Segmented Neutrophils Pending, Absolute Lymphocytes 4.1 H, Absolute Monocytes 1.0 H, Absolute Eosinophils 0.2, Absolute Basophils 0, Valproic Acid 98.6, Serum Alcohol < 10.0 03/31/18 06: Urine Opiates Screen < 100, Methadone Screen < 40, Barbiturate Screen < 60, Ur Phencyclidine Scrn < 6.00, Amphetamines Screen 101, U Benzodiazepines Scrn < 85, Urine Cocaine Screen < 50, Urine Cannabis Screen < 5.00 Hand-Off Endorsed To: Micheal Larios DO Endorsed Time: 0700 Pending: consult (Surjit MAYFIELD,Tino Gay) Departure Departure Disposition: STILL A PATIENT Condition: Stable Clinical Impression Primary Impression: Schizo-affective schizophrenia Referrals: Unknown Departure Forms: Customer Survey General Discharge Information (Surjit MAYFIELD,Tino Gay) Departure Prescriptions: Current Visit Scripts Divalproex Sodium (Depakote) 2 TAB PO BID #28 TAB Lorazepam (Ativan) 1 TAB PO QHS PRN INSOMNIA #7 TAB Comments 03/31/18 The patient was not signed out to me. The patient was discharged by Dr. Eddy. The patient apparently decided he did not want to speak with crisis. (Micheal Larios DO)
[2018-03-31] MEDS ORDERED: DEPAKOTE500 M1 PO (06:56)
[2018-03-31] MEDS ORDERED: ATIVAN0.5 M1 PO (06:56)
[2018-03-31 07:10] LABS: ABSOLUTE BASOPHIL COUNT 0 /CUMM (0.0-0.2); ABSOLUTE EOSINOPHIL COUNT 0.2 /CUMM (0.0-0.7); ABSOLUTE GRANULOCYTE CT 4.3 /CUMM (1.4-6.5); ABSOLUTE LYMPH COUNT 4.1 /CUMM (1.2-3.4); BASOPHIL % 0.3 % (0.0-2.0); EOSINOPHIL % 2.2 % (0-5); GRANULOCYTE % 44.6 % (42.2-75.2); MEAN CORPUSCULAR HGB 30.7 PG (27.0-31.0); MEAN CORPUSCULAR HGB CONC 33.5 G/DL (33.0-37.0); MEAN CORPUSCULAR VOLUME 91.8 FL (80.0-94.0); MEAN PLATELET VOLUME 6.2 FL (7.4-10.4); PLATELET COUNT 270 /CUMM (130-400); RBC DISTRIBUTION WIDTH 13.9 % (11.5-14.5); RED BLOOD CELL CT 4.79 /CUMM (4.70-6.10); WHITE BLOOD CELL COUNT 9.6 /CUMM (4.8-10.8)
[2018-03-31 07:16] VITALS: BP 122/66
== END 2018-03-31 07:27 ==
LOC: ERH 05:51
PROVIDERS: Emergency Medicine
DX: F25.9 Schizoaffective disorder, unspecified (principal)
CPT/HCPCS: 80307; G0480